=== PATIENT | female | born 1970 | race Caucasian/White ===

== ENCOUNTER 2017-12-25 06:25 | Observation (INO) | payer OTHER ==
[~2017-12-25] VITALS: Ht 162.6 cm; Wt 85.0 kg
[~2017-12-25 06:25] MED LIST: CHOL1CAP34 PO; DICY10CA12 PO
[2017-12-25] MEDS ORDERED: ceFAZolin 2 GM/DEX PREMIX 50 ML IV SCH (06:45)
[2017-12-25] MEDS ORDERED: LACTATED RINGER'S 1000 ML IV PRN (06:45)
[2017-12-25] MEDS ORDERED: CHLORHEXIDINE GLUCONATE 2 % 1 PACK (2 CLOTHS) TOPICAL PRN (06:45)
[2017-12-25] MEDS ORDERED: METOPROLOL TARTRATE 25 MG TAB PO PRN (06:45)
[2017-12-25] MEDS ORDERED: POVIDONE IODINE 5% (ANTISEPSIS KIT) 4 APPLICATIONS EACH NARE PRN (06:45)
[2017-12-25] MEDS ORDERED: SODIUM CHLORID 0.9% 500 ML IV PRN (06:45)
[2017-12-25 07:27] LABS: AUTOMATED NEUTROPHIL # 7.7 TH/MM3 (1.8-7.7); BASOPHIL # 0.1 TH/MM3 (0-0.2); BASOPHIL % 0.6 % (0.0-2.0); EOSINOPHIL # 0.1 TH/MM3 (0-0.4); EOSINOPHIL % 1.1 % (0.0-4.0); HEMATOCRIT 42.9 % (35.0-46.0); HEMOGLOBIN 14.5 GM/DL (11.6-15.3); LYMPH % 23.2 % (9.0-44.0); LYMPHOCYTE # 2.7 TH/MM3 (1.0-4.8); MEAN CELL VOLUME 88.6 FL (80.0-100.0); MEAN CORPUSCULAR HEMOGLOBIN 29.9 PG (27.0-34.0); MEAN CORPUSCULAR HGB CONC 33.7 % (32.0-36.0); MEAN PLATELET VOLUME 8.5 FL (7.0-11.0); MONO % 9.6 % (0.0-8.0); MONOCYTE # 1.1 TH/MM3 (0-0.9); NEUT % 65.5 % (16.0-70.0); PLATELET COUNT 294 TH/MM3 (150-450); RED BLOOD COUNT 4.85 MIL/MM3 (4.00-5.30); RED CELL DISTRIBUTION WIDTH 13.9 % (11.6-17.2); WHITE BLOOD COUNT 11.7 TH/MM3 (4.0-11.0)
[2017-12-25] MEDS ORDERED: NORMOSOL R INJ 1,000 ML IV ONE (09:11)
[2017-12-25] MEDS ORDERED: GLYCOPYRROLATE 1 MG/5 ML SYRINGE IV PUSH ONE (09:11)
[2017-12-25] MEDS ORDERED: DEXAMETHASONE SOD PHOS 4 MG/ML VIAL IV ONE (09:11)
[2017-12-25] MEDS ORDERED: ROCURONIUM INJ 50 MG/5 ML SYRINGE IV PUSH ONE (09:11)
[2017-12-25] MEDS ORDERED: LIDOCAINE HCL 1% PF 5 ML SYRINGE OTHER ONE (09:11)
[2017-12-25] MEDS ORDERED: ONDANSETRON HCL 4 MG/2 ML VIAL IV PUSH ONE (09:11)
[2017-12-25] MEDS ORDERED: NEOSTIGMINE 5 MG/5 ML SYRINGE IV PUSH ONE (09:11)
[2017-12-25] MEDS ORDERED: PROPOFOL 200 MG/20 ML AMP IV ONE (09:11)
[2017-12-25] MEDS ORDERED: ACETAMINOPHEN 1000 MG/100 ML 100 ML IV ONE (09:21)
[2017-12-25] MEDS ORDERED: KETAMINE HCL 50 MG/5 ML SYRINGE ONE ×2 (09:21→09:22)
[2017-12-25] MEDS ORDERED: BUPIVACAINE/EPINEPHRINE 0.5% PF 10 ML VIAL ONE (09:23)
--- NOTE | 2017-12-25 11:39 | PD.OP ---
Operative Report Date of Surgery: December 25, 2017 Preoperative Diagnosis: (1) Excessive menstruation Postoperative Diagnosis: (1) Excessive menstruation Procedure: LAS BSO Anesthesia: general Surgeon: Tej Burroughs Graduating Machine Operator(s): Tej Melissa MD December 25, 2017 11:39
[2017-12-25] MEDS ORDERED: DO NOT ADM ANY ANTICOAGULANT DRUGS PRN (11:44)
[2017-12-25] MEDS ORDERED: ONDANSETRON ODT 4 MG TAB SL PRN (11:45)
[2017-12-25] MEDS ORDERED: HYDROmorphone HCL PF 2 MG/ML VIAL IV PUSH PRN (11:45)
[2017-12-25] MEDS ORDERED: KETOROLAC TROMETHAMINE 30 MG/ML (IVP) VIAL IVP PRN (11:45)
[2017-12-25] MEDS ORDERED: SODIUM CHLORIDE 0.9% FLUSH 10 ML FLUSH IV FLUSH PRN (11:45)
[2017-12-25] MEDS ORDERED: diphenhydrAMINE HCL 25 MG CAP PO PRN (11:45)
[2017-12-25] MEDS ORDERED: oxyCODONE/ACETAMINOPHEN 5 MG/325 MG TAB PO PRN (11:45)
[2017-12-25] MEDS ORDERED: MIDAZOLAM HCL 2 MG/2 ML VIAL ONE (11:50)
[2017-12-25] MEDS ORDERED: *RESP: ALBUTEROL 2.5 MG/3 ML NEB (PRN) PERIprocedural Use ONLY NEB ONE (11:54)
[2017-12-25] MEDS ORDERED: *morphine SULFATE 4 MG/ML PERIprocedure ONLY ONE (12:00)
--- NOTE | 2017-12-25 12:28 | MP ---
cc: Tej Burroughs MD DATE OF OPERATION: 12/25/2017 PROCEDURE PERFORMED: Laparoscopic supracervical hysterectomy, bilateral salpingo-oophorectomy. PREOPERATIVE DIAGNOSIS: Excessive menses. POSTOPERATIVE DIAGNOSES: Excessive menses. SURGEON: Tej Burroughs MD. [employer] DRIVER: CORETTA Sol. COMPLICATIONS: None. SPECIMENS: Included uterus, fallopian tubes, and ovaries bilaterally. ANESTHESIA: General. FINDINGS: A normal female pelvic anatomy, moderate scar tissue from previous section. PROCEDURE IN DETAIL: After informed consent, the patient was taken to the operating room where she was placed under general anesthesia. She was placed in the supine position, legs in the [place] stirrups. Abdomen, perineum, and vagina were prepped and draped in the normal sterile fashion. After adequate anesthesia was assured and timeout was taken and the DuraPrep had time to dry, the patient was prepped and draped. Cook catheter was placed to gravity. A speculum was placed in the vagina. The cervix was grasped with a single-tooth tenaculum. Uterus was grasped with a single-tooth tenaculum. An [place] uterine manipulator was placed into the cervix without difficulty. Gloves were changed. A 5 mm supraumbilical incision was then made after injecting with 0.5% Marcaine with epinephrine. We entered the abdomen under direct visualization. The upper and lower abdomen were normal. She had adhesions of the uterus to the anterior abdominal wall and omentum to the anterior abdominal wall. Left lateral lower quadrant and right lower quadrant 5 mm trocars were placed without difficulty and the adhesions were taken down. The one of the uterus remained partially in place secondary to the bladder being below it. We then came across the infundibulopelvic ligaments bilaterally with the Harmonic scalpel. Good hemostasis was achieved. We continued down the pelvis cutting and cauterizing the blood vessels. As we got down to the level of the round ligament, we came across the round ligament. At this point, the bladder flap was created and the remaining portion of the uterine adhesion was taken down. The bladder was found to be below on the cervix and was left in place after creating a bladder flap. Once we got down to the cervix, the uterine arteries were taken bilaterally. Bipolar cautery had to be used especially on the left side and right side for bleeding at the uterine artery. At this point, we came across the cervix with the Harmonic scalpel. The uterus was amputated. Good hemostasis had been achieved at all pedicles. A small 20 cm incision was made suprapubically where we entered through the skin to the fascia previous abdominoplasty and entered the abdomen. Once the abdomen was entered, we grasped the uterus and pulled it through that incision without difficulty. The fascia was closed with 0 Vicryl suture. The skin was closed with a subcuticular stitch. Once again, the abdomen was insufflated. Everything was noted to be dry. The pelvis was irrigated well with saline. The saline was evacuated with suction and the procedure was ended. All instruments removed from the abdomen along with CO2. The 5 mm trocar sites were closed with 4-0 Vicryl. The patient tolerated the procedure well. She was taken to the recovery room in stable condition. Lap and instrument counts were reported as correct. All instruments were removed from the vagina and the Cook catheter was removed. Tej Burroughs MD JWUlices/JOLEEN , 11:44 AM , 12:26 PM
[2017-12-25 12:35] VITALS: BP 120/70; PULSE 81; RESP 20; TEMP 98.4
[2017-12-25 18:00] VITALS: BP 141/80; PULSE 84; RESP 20; TEMP 97.7
[2017-12-25 20:00] VITALS: BP 120/77; PULSE 86; RESP 18; TEMP 98; O2SAT 98
[2017-12-25] MEDS: IBUPROFEN 600 MG TAB PO PRN (20:34)
[2017-12-25] MEDS: oxyCODONE/ACETAMINOPHEN 5 MG/325 MG TAB PO PRN (20:35)
[2017-12-25] MEDS ORDERED: SODIUM CHLORIDE 0.9% FLUSH 10 ML FLUSH IV FLUSH SCH (21:00)
[2017-12-25 23:24] VITALS: BP 100/60; PULSE 63; RESP 18; TEMP 98.1; O2SAT 97
[2017-12-26 04:00] VITALS: BP 123/72; PULSE 68; RESP 18; TEMP 98; O2SAT 97
[2017-12-26] MEDS: IBUPROFEN 600 MG TAB PO PRN (04:58)
[2017-12-26] MEDS: oxyCODONE/ACETAMINOPHEN 5 MG/325 MG TAB PO PRN (04:59)
[2017-12-26 06:01] LABS: BASOPHIL # 0.1 TH/MM3 (0-0.2); BASOPHIL % 0.3 % (0.0-2.0); EOSINOPHIL % 0.1 % (0.0-4.0); HEMATOCRIT 40.6 % (35.0-46.0); HEMOGLOBIN 13.8 GM/DL (11.6-15.3); LYMPH % 13.5 % (9.0-44.0); LYMPHOCYTE # 2.8 TH/MM3 (1.0-4.8); MEAN CELL VOLUME 89.1 FL (80.0-100.0); MEAN CORPUSCULAR HEMOGLOBIN 30.4 PG (27.0-34.0); MEAN CORPUSCULAR HGB CONC 34.1 % (32.0-36.0); MEAN PLATELET VOLUME 8.8 FL (7.0-11.0); MONO % 9.4 % (0.0-8.0); NEUT % 76.7 % (16.0-70.0); PLATELET COUNT 255 TH/MM3 (150-450); RED BLOOD COUNT 4.55 MIL/MM3 (4.00-5.30); RED CELL DISTRIBUTION WIDTH 13.8 % (11.6-17.2); WHITE BLOOD COUNT 20.9 TH/MM3 (4.0-11.0)
[2017-12-26 07:15] VITALS: BP 128/81; PULSE 70; RESP 16; TEMP 98.3
--- NOTE | 2017-12-26 07:41 | HHI.OB ---
Subjective Post Operative Day: 1 Remarks doing well Objective Vitals/I&O Vital Signs Date Time Temp Pulse Resp B/P (MAP) Pulse Ox O2 Delivery O2 Flow Rate FiO2 12/26/17 04:00 98.0 68 18 123/72 (89) 97 12/25/17 23:24 98.1 63 18 100/60 (73) 97 12/25/17 20:00 98.0 86 18 120/77 (91) 98 12/25/17 18:00 97.7 84 20 141/80 (100) 12/25/17 12:35 98.4 81 20 120/70 (87) 12/25/17 12:27 97.8 93 15 125/70 (88) 99 Nasal Cannula 3 12/25/17 12:15 92 15 124/68 (86) 99 Nasal Cannula 3 12/25/17 12:00 92 14 124/69 (87) 99 Nasal Cannula 3 12/25/17 11:43 97.4 110 14 135/62 (86) 99 Simple Mask 6 Result Diagram: 12/26/17 0527 Objective Remarks GENERAL: Well-nourished, well-developed patient. CARDIOVASCULAR: Regular rate and rhythm without murmurs, gallops, or rubs. RESPIRATORY: Breath sounds equal bilaterally. No accessory muscle use. ABDOMEN/GI: Abdomen soft, non-tender, bowel sounds present. Incision: Clean, dry and intact. Fundus: Firm, non-tender at umbilicus. GENITOURINARY: Light to moderate bleeding. EXTREMITIES: No cyanosis or edema, non-tender, without signs of DVT. Medications and IVs Current Medications Medications (Trade) Dose Ordered Sig/Franco Route Start Time Stop Time Status Last Admin Cefazolin Sodium/ Dextrose 50 ml @ 100 mls/hr COMMERCIAL DRIVER IV 12/25/17 06:45 12/28/17 06:44 Lactated Ringer's 1,000 ml @ 30 mls/hr Q24H PRN IV 12/25/17 06:45 12/28/17 06:44 12/25/17 07:08 Sodium Chloride 500 ml @ 30 mls/hr [id number] PRN IV 12/25/17 06:45 12/28/17 06:44 (Lopressor) 25 mg COMMERCIAL DRIVER PRN PO 12/25/17 06:45 12/28/17 06:44 (Betadine 5% Antisepsis Kit) 1 applic COMMERCIAL DRIVER PRN EACH NARE 12/25/17 06:45 12/28/17 06:44 12/25/17 07:18 (Chlorhexidine 2% Cloth) 3 pack COMMERCIAL DRIVER PRN TOPICAL 12/25/17 06:45 12/28/17 06:44 12/25/17 06:45 (NS Flush) 2 ml UNSCH PRN IV FLUSH 12/25/17 11:45 (NS Flush) 2 ml BID IV FLUSH 12/25/17 21:00 (Motrin) 600 mg Q6H PRN PO 12/25/17 11:45 12/26/17 04:58 (Toradol Inj) 30 mg Q6H PRN IVP 12/25/17 11:45 12/30/17 11:44 12/25/17 11:57 (Percocet 5-325 Mg) 1 tab Q4H PRN PO 12/25/17 11:45 (Percocet 5-325 Mg) 2 tab Q4H PRN PO 12/25/17 11:45 12/26/17 04:59 (Dilaudid Pf Inj) 1 mg Q4H PRN IV PUSH 12/25/17 11:45 12/25/17 16:35 (Benadryl) 25 mg Q6H PRN PO 12/25/17 11:45 (Zofran Odt) 4 mg Q6H PRN SL 12/25/17 11:45 ([facility] [place] ALL NURSING DEPARTME... UNSCH PRN .XX 12/25/17 11:44 12/26/17 11:43 Assessment/Plan Problem List: (1) Excessive menstruation ICD Codes: N92.0 - Excessive and frequent menstruation with regular cycle Tej Burroughs MD December 26, 2017 07:40
[2017-12-26] MEDS ORDERED: OXYC1TAB63 PO (07:42)
--- NOTE | 2017-12-26 07:43 | HHI.DCPOC ---
Discharge Care Plan Diagnosis: (1) Excessive menstruation Report Symptoms to Your Doctor -Temperature above 100.5 degrees -Redness, of incision or excessive or foul smelling drainage -Unusual pain or calf pain -Increased vaginal bleeding -Painful or difficulty urinating -Feelings of extreme sadness or anxiety after 2 weeks Goals to Promote Your Health * To prevent worsening of your condition and complications * To maintain your health at the optimal level Directions to Meet Your Goals Take your medications as prescribed Follow your dietary instruction Follow activity as directed Ensure plenty of rest for recovery Drink fluids for hydration Keep your appointments as scheduled Take your immunizations and boosters as scheduled If your symptoms worsen call your PCP, if no PCP go to Urgent Care Center or Emergency Room Smoking is Dangerous to Your Health. Avoid second hand smoke Call the 24-hour crisis hotline for domestic abuse at Tej Burroughs MD December 26, 2017 07:43
--- NOTE | 2017-12-26 07:45 | HHI.DS ---
Admission Date December 25, 2017 at 11:40 Discharge Date: December 26, 2017 Admitting Diagnosis Diagnosis: (1) Excessive menstruation ICD Codes: N92.0 - Excessive and frequent menstruation with regular cycle Brief History 47 yo for LASH and BSO Hospital Course doing well post op day #1 doing well. Dc home voiding and ambulating Pt Condition on Discharge: Good Discharge Disposition: Discharge Home Discharge Instructions Diet Instructions: As Tolerated, No Restrictions Activities You Can Perform: Regular-No Restrictions, Pelvic Rest Activities to Avoid: Driving for 24 hrs Follow up Referrals: PHARMACOGNOSIST - 2 Weeks @ [facility] with Tej Burroughs MD New Medications: Oxycodone HCl/Acetaminophen (Oxycodone-Acetaminophen 5-325) 5 Mg-325 Mg Tablet 1 TAB PO Q4H PRN for PAIN SCALE 1 TO 5, #30 TAB Continued Medications: Dicyclomine (Dicyclomine) 10 Mg Cap 10 MG PO TID for Bowel Management, CAP 0 Refills Tej Burroughs MD December 26, 2017 07:45
== END 2017-12-26 09:12 | disposition home or self-care (01) ==
LOC: HSDC 06:25 → HSDI 11:40 → H1EA 12:38
PROVIDERS: ADMIT Obstetrics & Gynecology; ATTEND Obstetrics & Gynecology
DX: N92.0 Excessive and frequent menstruation with regular cycle (principal)
CPT/HCPCS: 00840; 58542; 84702; 85025; 86850; 86900; 86901; 88307; 94664; 96374; G0378; J0131; J1100; J1170; J1885; J2250; J2270; J2405; J2710; J3010; J7120; J7613